=== PATIENT | female | born 1980 | race American Indian/Alaskan Native ===

== ENCOUNTER 2016-06-22 10:50 | Inpatient (IN) | payer OTHER | END 2016-07-04 12:07 | disposition left against medical advice (07) | DRG 781 | DX: O99.312 Alcohol use complicating pregnancy, second trimester (principal); O99.322 Drug use complicating pregnancy, second trimester; F10.21 Alcohol dependence, in remission; F12.21 Cannabis dependence, in remission; F15.21 Other stimulant dependence, in remission; Z3A.27 27 weeks gestation of pregnancy; Z63.72 Alcoholism and drug addiction in family; Z65.3 Problems related to other legal circumstances ==